=== PATIENT | male | born 1965 | race African-American/Black ===

== ENCOUNTER 2017-07-15 10:08 | Emergency (ER) | payer OTHER ==
[~2017-07-15] VITALS: Ht 180.3 cm; Wt 100.3 kg
[~2017-07-15 10:08] MED LIST: ADVAIR 250/501 DISK IH; ASPIR 8181 M1 PO; ASPIR-LOW81 MG PO; AUGMENTIN600 MG/5 M PO; FLEXERIL10 MG PO; FLEXERIL5 MG PO; GAS RELIEF125 MG PO; IBUPROFEN600 MG PO; INDOCIN25 MG PO; KENALOG,ARISTOC15 G2 TP; LISINOPRIL20 MG PO; LO-DOSE ASPIRIN81 M1 PO; MOBIC15 MG PO; MYLICON,MYLANTA80 MG PO; NORCO 5/3251 TABLET PO; NORCO 7.5/321 TABLET PO; PERCOCET 5/31 TABLET PO; PREDNISONE10 M1 PO; PREDNISONE20 MG PO; PRINIVIL20 MG PO; PROAIR HFA8.5 GM IH; PROVENTIL,2.5 MG/3 M IH; SEROQUEL100 MG PO; SINGULAIR10 MG PO; TYLENOL WITH C1 EACH PO; ZESTRIL20 MG PO; ZOLOFT100 MG PO
[2017-07-15 11:03] LABS: HEMATOCRIT 46.8 % (38.0-50.0); HEMOGLOBIN 15.9 G/DL (12.5-16.6); MCH 30.1 PG (29.0-34.0); MCV 88.6 FL (86-99); PLATELET COUNT 327 K/uL (156-360); RBC DIS.WIDTH-CV 12.5 % (11.8-14.6); RED BLOOD COUNT 5.28 M/uL (4.00-5.50); WHITE BLOOD COUNT 10.7 K/uL (4.1-10.2)
[2017-07-15 11:17] LABS: ALBUMIN 4.7 g/dL (3.2-4.8)
[2017-07-15 11:18] LABS: CHLORIDE 102 mEq/L (99-109); SODIUM 139 mEq/L (136-147)
[2017-07-15 11:20] LABS: GLUCOSE 103 mg/dL (70-99); TOTAL PROTEIN 8.7 g/dL (6.4-8.3)
[2017-07-15 11:22] LABS: TOTAL BILIRUBIN 0.7 mg/dL (0.0-1.0)
[2017-07-15 11:23] LABS: ALKALINE PHOSPHATASE 82 IU/L (3-129)
[2017-07-15 11:24] LABS: GFR ESTIMATE (CALCULATED) > 59 mL/min/ (58.99-99999)
[2017-07-15 11:25] LABS: AST (GOT) 27 IU/L (2-34); UREA NITROGEN (BUN) 11 mg/dL (9-23)
[2017-07-15 11:27] LABS: ALT (GPT) 24 IU/L (3-49)
[2017-07-15 13:09] LABS: LIPASE 61 U/L (1.0-51.0)
[2017-07-15] MEDS ORDERED: ZOFRAN ODT4 MG PO (14:46)
[2017-07-15] MEDS ORDERED: NORCO 5/3251 TABLET PO (14:46)
[2017-07-15 14:59] VITALS: BP 116/74
== END 2017-07-15 15:01 | disposition home or self-care (01) ==
LOC: EME 10:08
DX: K85.90 Acute pancreatitis without necrosis or infection, unspecified (principal); K21.9 Gastro-esophageal reflux disease without esophagitis; I10 Essential (primary) hypertension; J45.909 Unspecified asthma, uncomplicated; F41.9 Anxiety disorder, unspecified; F32.9 Major depressive disorder, single episode, unspecified; Z80.0 Family history of malignant neoplasm of digestive organs; Z79.82 Long term (current) use of aspirin; Z88.6 Allergy status to analgesic agent
CPT/HCPCS: 74177; 80053; 81003; 83690; 85027; 99281; 99285; J1885

== ENCOUNTER 2017-11-03 21:37 | Emergency (ER) | payer OTHER ==
[~2017-11-03] VITALS: Ht 180.3 cm; Wt 93.4 kg
[~2017-11-03 21:37] MED LIST changes: +ZOFRAN ODT4 MG PO
[2017-11-03 22:09] LABS: HEMOGLOBIN 14.2 G/DL (12.5-16.6); MCH 29.6 PG (29.0-34.0); MCHC 33.8 G/DL (30.0-36.0); MCV 87.7 FL (86-99); PLATELET COUNT 259 K/uL (156-360); RBC DIS.WIDTH-CV 12.2 % (11.8-14.6); RBC DIS.WIDTH-SD 39.4 % (39-53); RED BLOOD COUNT 4.79 M/uL (4.00-5.50); WHITE BLOOD COUNT 7.3 K/uL (4.1-10.2)
[2017-11-03 22:23] LABS: CHLORIDE 105 mEq/L (99-109); POTASSIUM 3.7 mEq/L (3.7-5.4); SODIUM 144 mEq/L (136-147)
[2017-11-03 22:24] LABS: GLUCOSE 104 mg/dL (70-99)
[2017-11-03 22:28] LABS: CREATININE 0.9 mg/dL (0.6-1.3); GFR ESTIMATE (CALCULATED) > 59 mL/min/ (58.99-99999)
[2017-11-03 22:29] LABS: UREA NITROGEN (BUN) 14 mg/dL (9-23)
[2017-11-03 22:33] LABS: TROP-I INTERPRETATION NEGATIVE; TROPONIN-I < 0.01 ng/mL (0.0-0.30)
[2017-11-03 22:39] LABS: LIPASE 37 U/L (1.0-51.0)
[2017-11-03 22:56] VITALS: BP 155/110
== END 2017-11-03 22:57 | disposition left against medical advice (07) ==
LOC: EME 21:37
DX: R07.89 Other chest pain (principal); Z53.21 Procedure and treatment not carried out due to patient leaving prior to being seen by health care provider; I10 Essential (primary) hypertension; J45.909 Unspecified asthma, uncomplicated; F41.9 Anxiety disorder, unspecified; F32.9 Major depressive disorder, single episode, unspecified; Z79.82 Long term (current) use of aspirin; Z88.6 Allergy status to analgesic agent
CPT/HCPCS: 71046; 80048; 83690; 84484; 85027; 93005; 99281; 99284

== ENCOUNTER 2017-11-27 14:02 | Emergency (ER) | payer OTHER ==
[~2017-11-27] VITALS: Ht 177.8 cm; Wt 91.2 kg
[2017-11-27 15:03] LABS: HEMATOCRIT 46.2 % (38.0-50.0); HEMOGLOBIN 15.5 G/DL (12.5-16.6); MCH 29.3 PG (29.0-34.0); MCHC 33.5 G/DL (30.0-36.0); MCV 87.3 FL (86-99); PLATELET COUNT 283 K/uL (156-360); RBC DIS.WIDTH-CV 11.7 % (11.8-14.6); RBC DIS.WIDTH-SD 37.7 % (39-53); RED BLOOD COUNT 5.29 M/uL (4.00-5.50); WHITE BLOOD COUNT 5.3 K/uL (4.1-10.2)
[2017-11-27 15:17] LABS: ALBUMIN 4.6 g/dL (3.2-4.8); CHLORIDE 102 mEq/L (99-109); POTASSIUM 4.2 mEq/L (3.7-5.4); SODIUM 139 mEq/L (136-147)
[2017-11-27 15:19] LABS: GLUCOSE 91 mg/dL (70-99)
[2017-11-27 15:20] LABS: TOTAL PROTEIN 8.6 g/dL (6.4-8.3)
[2017-11-27 15:21] LABS: TOTAL BILIRUBIN 0.9 mg/dL (0.0-1.0)
[2017-11-27 15:23] LABS: ALKALINE PHOSPHATASE 82 IU/L (3-129); CREATININE 0.9 mg/dL (0.6-1.3); GFR ESTIMATE (CALCULATED) > 59 mL/min/ (58.99-99999)
[2017-11-27 15:24] LABS: UREA NITROGEN (BUN) 9 mg/dL (9-23)
[2017-11-27 15:25] LABS: AST (GOT) 24 IU/L (2-34)
[2017-11-27 15:26] LABS: ALT (GPT) 15 IU/L (3-49)
[2017-11-27 16:04] LABS: LIPASE 21 U/L (1.0-51.0)
[2017-11-27] MEDS ORDERED: CARAFATE1 GM PO (17:16)
[2017-11-27] MEDS ORDERED: TRAMADOL HCL50 MG PO (17:16)
[2017-11-27 17:43] VITALS: BP 126/99
== END 2017-11-27 17:44 | disposition home or self-care (01) ==
LOC: EME 14:02
PROVIDERS: Physician Assistant
DX: R10.13 Epigastric pain (principal); I10 Essential (primary) hypertension; F32.9 Major depressive disorder, single episode, unspecified; F41.9 Anxiety disorder, unspecified; Z87.19 Personal history of other diseases of the digestive system; J45.909 Unspecified asthma, uncomplicated; Z79.82 Long term (current) use of aspirin; Z88.6 Allergy status to analgesic agent
CPT/HCPCS: 71046; 80053; 83690; 85027; 99281; 99284